=== PATIENT | female | born 2000 | race Caucasian/White ===

== ENCOUNTER 2019-05-01 09:53 | Inpatient (IN) | payer OTHER ==
[2019-05-01] MEDS ORDERED: NORMAL SALINE 1000 ML 1,000 ML IV ONE (11:38)
[2019-05-01] MEDS ORDERED: ONDANSETRON HCL INJ/PF 4 MG/2 ML SDV IV ONE ×2 (11:38→16:23)
--- NOTE | 2019-05-01 11:41 | ER Document Report ---
ED Medical Screen (RME) - General Chief Complaint: Nausea/Vomiting/Diarrhea Stated Complaint: VOMITING Time Seen by Provider: 05/01/19 11:31 Notes: Patient is a 18-year-old female with a history of anxiety, depression, borderline personality disorder who presents emergency department with a chief complaint of vomiting. Patient reports Wednesday night she took 3 handfuls of extra strength Tylenol as well as 1200 mg of ibuprofen. Patient reports she did not do this in an attempt to harm herself but states that she became very emotional and just wanted to "silence her mind." Patient reports she does have a history of suicidal ideation with attempt in the past. Patient reports she was not in pain during this event. Patient reports she is having generalized abdominal pain. Patient reports she has vomited over 20 times and is unable to keep anything down. Patient reports she has not lived here in the area for a long period of time and does not currently take any medications as she does not have a counselor here. Patient currently denies suicidal or homicidal ideation. Patient reports she does have a lot of stressors at home. - Related Data Allergies/Adverse Reactions: Penicillins Allergy (Severe, Verified 05/01/19 11:30) Hives Physical Exam - Vital signs Vitals: Temp Pulse Resp BP Pulse Ox 97.8 F 79 20 121/68 100 05/01/19 10:59 05/01/19 10:59 05/01/19 10:59 05/01/19 10:59 05/01/19 10:59 - Abdominal Inspection: Normal Distension: No distension Bowel sounds: Hyperactive Tenderness: Nontender Organomegaly: No organomegaly Course - Re-evaluation Re-evalutation: 05/01/19 11:40 I have greeted and performed a rapid initial assessment of this patient. A comprehensive ED assessment and evaluation of the patient, analysis of test results and completion of the medical decision making process will be conducted by additional ED providers. - Vital Signs Vital signs: Temp Pulse Resp BP Pulse Ox 97.8 F 79 20 121/68 100 05/01/19 10:59 05/01/19 10:59 05/01/19 10:59 05/01/19 10:59 05/01/19 10:59
[2019-05-01 12:17] LABS: ABSOLUTE EOSINOPHILS # (AUTO) 0.2 10^3/uL (0.0-0.6); ABSOLUTE LYMPHOCYTES (AUTO) 0.7 10^3/uL (0.5-4.7); ABSOLUTE MONOCYTES (AUTO) 0.4 10^3/uL (0.1-1.4); BASOPHILS % (AUTO) 0.3 % (0-2); EOSINOPHILS % (AUTO) 1.9 % (0-6); HEMATOCRIT 44.9 % (36.0-47.0); HEMOGLOBIN 15.4 g/dL (12.0-15.5); LYMPHOCYTES % (AUTO) 8.4 % (13-45); MEAN CORPUSCULAR HEMOGLOBIN 29.5 pg (27.0-33.4); MEAN CORPUSCULAR HGB CONC 34.4 g/dL (32.0-36.0); MEAN CORPUSCULAR VOLUME 86 fl (80-97); MONOCYTES % (AUTO) 4.6 % (3-13); PLATELET COUNT 267 10^3/uL (150-450); RED BLOOD COUNT 5.23 10^6/uL (3.72-5.28); RED CELL DISTRIBUTION WIDTH 13.8 % (11.5-14.0); SEGMENTED NEUTROPHILS % (AUTO) 84.8 % (42-78); TOTAL CELLS COUNTED % (AUTO) 100 %; WHITE BLOOD COUNT 8.2 10^3/uL (4.0-10.5)
[2019-05-01 12:47] LABS: ALBUMIN 5.2 g/dL (3.5-5.0); ALKALINE PHOSPHATASE 67 U/L (38-126); ANION GAP 14 (5-19); ASPARTATE AMINO TRANSFERASE 354 U/L (14-36); BILIRUBIN,DIRECT 0.2 mg/dL (0.0-0.4); BILIRUBIN,TOTAL 3.7 mg/dL (0.2-1.3); BLOOD UREA NITROGEN 9 mg/dL (7-20); CALCIUM 10.4 mg/dL (8.4-10.2); CARBON DIOXIDE 26 mmol/L (22-30); CHLORIDE 99 mmol/L (98-107); GLUCOSE 92 mg/dL (75-110); POTASSIUM 4.2 mmol/L (3.6-5.0); TOTAL PROTEIN 9.1 g/dL (6.3-8.2)
[2019-05-01 12:51] LABS: ACETAMINOPHEN < 10 ug/mL (10-30); ALCOHOL < 10 mg/dL (NONE DETECTED); SALICYLATE < 1.0 mg/dL (2.0-20.0)
[2019-05-01 16:22] LABS: APPEARANCE,URINE CLEAR; BILIRUBIN,URINE NEGATIVE (NEGATIVE); COLOR,URINE YELLOW; GLUCOSE, URINE NEGATIVE (NEGATIVE); KETONES,URINE 80 mg/dL (NEGATIVE); LEUKOCYTE ESTERASE,URINE NEGATIVE (NEGATIVE); NITRITE,URINE NEGATIVE (NEGATIVE); PROTEIN,URINE 30 mg/dL (NEGATIVE); URINE SPECIFIC GRAVITY 1.024; UROBILINOGEN,URINE NEGATIVE mg/dL (<2.0)
[2019-05-01 16:38] LABS: URINE AMPHETAMINES SCREEN NEGATIVE; URINE BARBITURATES SCREEN NEGATIVE; URINE BENZODIAZEPINES SCREEN NEGATIVE; URINE COCAINE SCREEN NEGATIVE; URINE MARIJUANA (THC) SCREEN NEGATIVE; URINE METHADONE SCREEN NEGATIVE; URINE PHENCYCLIDINE SCREEN NEGATIVE
[2019-05-01] MEDS ORDERED: ACETYLCYSTEINE 20% SOLN 6000 MG/30 ML VIAL PO ONE (16:44)
--- NOTE | 2019-05-01 16:56 | ER Document Report ---
ED General - General Chief Complaint: Overdose Stated Complaint: VOMITING Time Seen by Provider: 05/01/19 11:31 Mode of Arrival: Ambulatory Information source: Patient TRAVEL OUTSIDE OF THE [place] IN LAST 30 DAYS: No - HPI Notes: Patient complains of nausea and vomiting. Patient states that approximately 2 days ago on Wednesday night she took 3 handfuls of Tylenol. She states these were extra strength Tylenol. She believes it was approximately 70 total tablets. She states after that she began to have abdominal cramping and vomiting. She states she felt better on Wednesday but then last night and this morning she began to have right-sided abdominal pain with vomiting once again. Therefore she decided to come to emergency room for evaluation. She denies that she was trying to hurt her self. She states that she was very emotional and just trying to calm herself down. She says she has tried to kill her self in the past but was not trying to hurt her self this time. She has seen psychiatry in the past and has a history of borderline personality disorder. Patient denies hearing any voices or seeing visions. Patient denies any problems with stool or urine. The right side abdominal pain is been constant and moderate. It is worse with movement and better with rest. There is no radiation of symptoms. - Related Data Allergies/Adverse Reactions: Penicillins Allergy (Severe, Verified 05/01/19 11:30) Hives Past Medical History - General Information source: Patient - Social History Smoking Status: Current Every Day Smoker - Vapes Chew tobacco use (# tins/day): No Frequency of alcohol use: None Drug Abuse: Other Family History: Reviewed & Not Pertinent Patient has suicidal ideation: No Patient has homicidal ideation: No Pulmonary Medical History: Reports: Hx Asthma Past Surgical History: Reports: Hx Cholecystectomy Review of Systems - Review of Systems Constitutional: Malaise. denies: Chills, Fever Cardiovascular: denies: Chest pain, Palpitations Respiratory: denies: Cough, Short of breath -: Yes All other systems reviewed and negative Physical Exam - Vital signs Vitals: Temp Pulse Resp BP Pulse Ox 97.8 F 79 20 121/68 100 05/01/19 10:59 05/01/19 10:59 05/01/19 10:59 05/01/19 10:59 05/01/19 10:59 Interpretation: Normal - General General appearance: Appears well, Alert - HEENT Head: Normocephalic, Atraumatic Eyes: Normal Pupils: PERRL - Respiratory Respiratory status: No respiratory distress Chest status: Nontender Breath sounds: Normal Chest palpation: Normal - Cardiovascular Rhythm: Regular Heart sounds: Normal auscultation Murmur: No - Abdominal Inspection: Normal Distension: No distension Bowel sounds: Normal Tenderness: Tender - Mild right upper quadrant Organomegaly: No organomegaly - Back Back: Normal, Nontender - Extremities General upper extremity: Normal inspection, Nontender, Normal color, Normal ROM, Normal temperature General lower extremity: Normal inspection, Nontender, Normal color, Normal ROM, Normal temperature, Normal weight bearing. No: Maribel's sign - Neurological Neuro grossly intact: Yes Cognition: Normal Orientation: AAOx4 Carol Coma Scale Eye Opening: Spontaneous Carol Coma Scale Verbal: Oriented Carol Coma Scale Motor: Obeys Commands [place] Coma Scale Total: 15 Speech: Normal Motor strength normal: LUE, RUE, LLE, RLE Sensory: Normal - Psychological Associated symptoms: Normal affect, Normal mood - Skin Skin Temperature: Warm Skin Moisture: Dry Skin Color: Normal Course - Re-evaluation Re-evalutation: 05/01/19 16:54 Patient presents with right side abdominal pain and vomiting. On her laboratories she has elevated liver function test. She does have a history of a recent Tylenol overdose although her Tylenol level is currently not detectable. I did call and consult with poison control. They recommend a loading dose of acetylcysteine. They also recommend admission for serial doses x5. Patient at this time is stable - Vital Signs Vital signs: Temp Pulse Resp BP Pulse Ox 97.8 F 79 20 121/68 100 05/01/19 11:30 05/01/19 10:59 05/01/19 11:30 05/01/19 10:59 05/01/19 11:30 - Laboratory Result Diagrams: 05/01/19 11:55 05/01/19 11:55 Laboratory results interpreted by me: 05/01/19 05/01/19 05/01/19 11:55 11:55 16:04 Lymph % (Auto) 8.4 L Seg Neutrophils % 84.8 H Calcium 10.4 H Total Bilirubin 3.7 H AST 354 H Total Protein 9.1 H Albumin 5.2 H Urine Protein 30 H Urine Ketones 80 H Salicylates < 1.0 L Acetaminophen < 10 L - EKG Interpretation by Me EKG shows normal: Sinus rhythm Rate: Normal - 68 Rhythm: NSR [place]/QRS: No: Right axis deviation, Left axis deviation Discharge - Discharge Clinical Impression: Tylenol overdose Qualifiers: Encounter type: initial encounter Injury intent: undetermined intent Qualified Code(s): T39.1X4A - Poisoning by 4-Aminophenol derivatives, undetermined, initial encounter Condition: Serious Disposition: ADMITTED INPATIENT Admitting Provider: Oren (Hospitalist) - day Unit Admitted: Medical Floor
[2019-05-01] MEDS ORDERED: NORMAL SALINE 1000 ML 1,000 ML IV PRN (17:15)
[2019-05-01] MEDS ORDERED: ONDANSETRON 4 MG TAB.RAPDIS PO PRN (17:15)
[2019-05-01] MEDS ORDERED: ONDANSETRON HCL INJ/PF 4 MG/2 ML SDV IV PRN (17:15)
--- NOTE | 2019-05-01 17:37 | PSYCHOLOGICAL NOTE ---
Psych Note - Psych Note Date seen by psych provider: 05/01/19 Time seen by psych provider: 16:10 Psych Note: Reason for consult: SI Patient is a 18 year old female who presents to ED via POV accompanied by her . Patient took approximately 70 Tylenol pills on Wednesday. Patient complains of gastrointestinal concerns that have not subsided. Patient states she became "overwhelmed" with the increase stress in her life and wanted "to quiet my mind so I could think logically." Patient denies this was a suicide attempt. Patient states she had a history of SI in high school. Patient denies suicidal and homicidal ideations. Patient met her , who is an active duty Marine, 8 months ago and they were 6 months ago. Patient stated this is her first time away from friends and family. Patient expressed some minor concerns adjusting to life. Patient's spouse left for training shortly after they were , and recently returned. Patient's spouse is leaving for deployment in July 2019. 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 Patient recently started school, and reports she will finish the semester with an A. Patient has a history of Borderline Personality Disorder. Patient states she has managed well until recently. Patient has is not linked with medication management or mental health. Patient has expressed a desire for mental health services that dismissed. Clinician provided psychoeducation regarding grief (come and go of deployments). Discussed life and the need to be linked with mental health services to manage emotional distress. Encouraged to reach out to [facility] for couple's counseling. Patient and noted no concerns for safety and wellbeing. Both deny this event was a suicide attempt. Patient is alert and oriented to person, place, time and circumstance. Mood is eurhythmic with congruent affect as evidenced by laughing, smiling, and engaging with clinician. Patient denies suicidal and homicidal ideations. Delusions are absent and behavior is congruent with an intact reality based presentation (i.e.: organized and linear through processes). There is no observed behavior that suggests patient is responding to internal stimuli. Patient denies current auditory and visual hallucinations. Eye contact is appropriate. Conversational speech is within normal rate, tone, and prosody. Intellectual ability appears to be within average range. Attention and concentration are good. Insight, judgment and impulse control are currently fair. DSM Diagnosis: Per report, Borderline Personality Disorder Medication recommendations per [facility] contracted psychiatrist Dr. Mario MICHAELS is as follows: NONE- Patient declined Impression/Plan: Patient is cleared from acute psychiatric services. Patient does not meet IVC criteria per [place] GS 122C. Patient is being admitted for medical concerns. Patient denies suicidal and homicidal ideations. There is no observed behavior that suggests patient is responding to internal stimuli. Patient denies current auditory and visual hallucinations. Patient verbalized awareness of the need for mental health services. Patient is observed to be able to be thoughtfully and purposefully engaged in her plan of care. Patient's is agreeable to being her manager intensive care, and is agreeable to joint therapy sessions to address deployment related concerns. Patient was provided a community mental health resource list with [facility] highlighted. Clinician provided contact information to community counseling center [facility]. Patient and were agreeable to plan and expressed no pressing issues or concerns. Dr. Brewer was consulted on the care and management of this patient; attending physician is in agreement with recommendations and disposition.
--- NOTE | 2019-05-01 17:41 | PDOC H&P ---
History of Present Illness Admission Date/PCP: 05/01/2019 History of Present Illness: RONNA MASSEY is a 18 year old female took approximately 70 Tylenol tablets on Wednesday which was 48 hours ago patient states that she was just overwhelmed and stressed out and wanted to change. She states she was not trying to kill herself as she is done in the past. Patient states that she has been admitted involuntarily to 2 psych units as a teenager 1 lasting 10 days and the other lasting 30. Patient says that she used to cut her wrist and she also used to take lots of pills. States that she just recently got in October and moved down here in January from [place] or [place]. States as a child and as a teenager she was very troubled and took lots of medications. States she has been on multiple antipsychotic and anti-depressive medications in the past. Again patient states that she was not trying to kill herself on Wednesday she was just trying to get rid of the "stress" Allergies penicillin 0 para 0 Patient's is in the room during the interview Past Medical History Pulmonary Medical History: Reports: Asthma Past Surgical History Past Surgical History: Reports: Cholecystectomy Social History Smoking Status: Current Every Day Smoker - Vapes Electronic Cigarette use?: No - Advance Directive Resuscitation Status: Full Code Family History Family History: Reviewed & Not Pertinent Parental Family History Reviewed: No Children Family History Reviewed: No Sibling(s) Family History Reviewed.: No Medication/Allergy Allergies/Adverse Reactions: Penicillins Allergy (Severe, Verified 05/01/19 11:30) Hives Review of Systems Constitutional: ABSENT: chills, fever(s), headache(s), weight gain, weight loss Cardiovascular: ABSENT: chest pain, dyspnea on exertion, edema, orthropnea, palpitations Respiratory: ABSENT: cough, hemoptysis Neurological: ABSENT: abnormal gait, abnormal speech, confusion, dizziness, focal weakness, syncope Psychiatric: PRESENT: anxiety, depression Physical Exam Vital Signs: Temp Pulse Resp BP Pulse Ox 97.8 F 79 20 121/68 100 05/01/19 11:30 05/01/19 10:59 05/01/19 11:30 05/01/19 10:59 05/01/19 11:30 Intake & Output 04/30/19 05/01/19 05/02/19 06:59 06:59 06:59 Intake Total 1000 Balance 1000 Weight 73.9 kg General appearance: PRESENT: no acute distress, well-developed, well-nourished, other - Eating up in bed laughing talking with her and with myself. Does not appear to be in any distress Respiratory exam: PRESENT: clear to auscultation roger. ABSENT: rales, rhonchi, wheezes Cardiovascular exam: PRESENT: RRR. ABSENT: diastolic murmur, rubs, systolic murmur Neurological exam: PRESENT: alert, awake, oriented to person, oriented to place, oriented to time, oriented to situation, CN II-XII grossly intact. ABSENT: motor sensory deficit Psychiatric exam: PRESENT: unusual affect - Happy and bubbly Results Laboratory Results: 05/01/19 11:55 05/01/19 11:55 05/01/19 05/01/19 05/01/19 11:55 11:55 11:55 WBC 8.2 RBC 5.23 Hgb 15.4 Hct 44.9 MCV 86 MCH 29.5 MCHC 34.4 RDW 13.8 Plt Count 267 Seg Neutrophils % 84.8 H Sodium 138.9 Potassium 4.2 Chloride 99 Carbon Dioxide 26 Anion Gap 14 BUN 9 Creatinine 0.64 Est GFR ( Amer) > 60 Glucose 92 Calcium 10.4 H Total Bilirubin 3.7 H AST 354 H Alkaline Phosphatase 67 Total Protein 9.1 H Albumin 5.2 H Serum HCG, Qual NEGATIVE Urine Color Urine Appearance Urine pH Ur Specific [place] Urine Protein Urine Glucose (UA) Urine Ketones Urine Blood Urine Nitrite Ur Leukocyte Esterase Urine WBC (Auto) Urine RBC (Auto) 05/01/19 16:04 WBC RBC Hgb Hct MCV MCH MCHC RDW Plt Count Seg Neutrophils % Sodium Potassium Chloride Carbon Dioxide Anion Gap BUN Creatinine Est GFR ( Amer) Glucose Calcium Total Bilirubin AST Alkaline Phosphatase Total Protein Albumin Serum HCG, Qual Urine Color YELLOW Urine Appearance CLEAR Urine pH 5.0 Ur Specific [place] 1.024 Urine Protein 30 H Urine Glucose (UA) NEGATIVE Urine Ketones 80 H Urine Blood NEGATIVE Urine Nitrite NEGATIVE Ur Leukocyte Esterase NEGATIVE Urine WBC (Auto) 2 Urine RBC (Auto) 0 Assessment and Plan - Diagnosis (1) Depression Is this a current diagnosis for this admission?: Yes (2) Personality disorder Is this a current diagnosis for this admission?: Yes (3) Tylenol overdose Qualifiers: Encounter type: initial encounter Injury intent: undetermined intent Qualified Code(s): T39.1X4A - Poisoning by 4-Aminophenol derivatives, undetermi laverne, initial encounter Is this a current diagnosis for this admission?: Yes - Plan Summary Summary: ER physician has called poison control and is loaded her with Mucomyst 140 mg/kg x 1, then to receive 70 mg/kg x 5 doses every 4 hours. Liver functions will be checked again in the morning. Psychiatry has been consulted Patient will be placed on suicide watch, and though she denies suicidal ideations, as of her past history I think this would be the best thing. She is medically stable to move to the floor - Time Time Spent with patient: 35 or more minutes
[2019-05-01] MEDS: ACETYLCYSTEINE 20% SOLN 6000 MG/30 ML VIAL PO SCH ×3 (18:23→23:44)
--- NOTE | 2019-05-01 18:44 | RADIOLOGY REPORT (SQ) ---
EXAM DESCRIPTION: U/S ABDOMEN LIMITED W/O DOP COMPLETED DATE/TIME: 05/01/2019 6:32 pm REASON FOR STUDY: ruq pain COMPARISON: None. TECHNIQUE: Dynamic and static grayscale images acquired of the abdomen and recorded on PACS. Additio nal selected color Doppler and spectral images recorded. LIMITATIONS: None. FINDINGS: PANCREAS: Not visualized. LIVER: Normal size Echo texture normal. No focal masses. LIVER VASCULATURE: Normal directional flow of the main portal vein and hepatic veins. GALLBLADDER: Surgically absent. ULTRASOUND-DETECTED MERRITT'S SIGN: Negative. INTRAHEPATIC DUCTS AND COMMON DUCT: CBD and intrahepatic ducts normal caliber. No filling defects. INFERIOR VENA CAVA: Normal flow. AORTA: No aneurysm. RIGHT KIDNEY: Normal size. Normal echogenicity. No solid or suspicious masses. No hydronephros is. No calcifications. PERITONEAL AND RIGHT PLEURAL SPACE: No ascites or effusions. OTHER: No other significant findings. IMPRESSION: GALLBLADDER ABSENT. OTHERWISE NORMAL RUQ US VISUALIZED TECHNICAL DOCUMENTATION: JOB ID: [id number] [employer]- All Rights Reserved Reading location - IP/workstation name: [email or web address]
[2019-05-01] MEDS ORDERED: PROMETHAZINE HCL INJ 25 MG/1 ML VIAL IV PRN (19:14)
[2019-05-01] MEDS: FAMOTIDINE 20 MG TABLET PO SCH (22:20)
--- NOTE | 2019-05-02 00:15 | EKG REPORT ---
SEVERITY:- NORMAL ECG - SINUS RHYTHM : Confirmed by: Shipla Medrano 02-May-2019 00:15:23
[2019-05-02] MEDS: ACETYLCYSTEINE 20% SOLN 6000 MG/30 ML VIAL PO SCH ×3 (02:11→12:51)
[2019-05-02 06:04] LABS: ABSOLUTE EOSINOPHILS # (AUTO) 0.2 10^3/uL (0.0-0.6); ABSOLUTE LYMPHOCYTES (AUTO) 1.2 10^3/uL (0.5-4.7); ABSOLUTE MONOCYTES (AUTO) 0.8 10^3/uL (0.1-1.4); ABSOLUTE NEUT (AUTO) 4.9 10^3/uL (1.7-8.2); BASOPHILS % (AUTO) 0.7 % (0-2); EOSINOPHILS % (AUTO) 2.5 % (0-6); HEMATOCRIT 37.8 % (36.0-47.0); MEAN CORPUSCULAR HEMOGLOBIN 29.7 pg (27.0-33.4); MEAN CORPUSCULAR HGB CONC 35.1 g/dL (32.0-36.0); MEAN CORPUSCULAR VOLUME 85 fl (80-97); MONOCYTES % (AUTO) 11.6 % (3-13); PLATELET COUNT 206 10^3/uL (150-450); RED BLOOD COUNT 4.46 10^6/uL (3.72-5.28); RED CELL DISTRIBUTION WIDTH 13.8 % (11.5-14.0); SEGMENTED NEUTROPHILS % (AUTO) 68.2 % (42-78); TOTAL CELLS COUNTED % (AUTO) 100 %; WHITE BLOOD COUNT 7.1 10^3/uL (4.0-10.5)
[2019-05-02 06:54] LABS: HEMOGLOBIN 13.3 g/dL (12.0-15.5)
[2019-05-02 07:18] LABS: ALBUMIN 3.8 g/dL (3.5-5.0); ALKALINE PHOSPHATASE 52 U/L (38-126); ANION GAP 12 (5-19); BILIRUBIN,DIRECT 0.1 mg/dL (0.0-0.4); BILIRUBIN,TOTAL 2.2 mg/dL (0.2-1.3); BLOOD UREA NITROGEN 5 mg/dL (7-20); CALCIUM 8.9 mg/dL (8.4-10.2); CARBON DIOXIDE 26 mmol/L (22-30); CHLORIDE 103 mmol/L (98-107); CREATINE KINASE 20 U/L (30-135); GLUCOSE 89 mg/dL (75-110); PHOSPHORUS 2.9 mg/dL (2.5-4.5); POTASSIUM 3.8 mmol/L (3.6-5.0); TOTAL PROTEIN 6.9 g/dL (6.3-8.2)
[2019-05-02 07:27] LABS: ASPARTATE AMINO TRANSFERASE 789 U/L (14-36)
[2019-05-02] MEDS ORDERED: ACETYLCYSTEINE 20% SOLN 6000 MG/30 ML VIAL PO SCH (10:30)
[2019-05-02] MEDS: FAMOTIDINE 20 MG TABLET PO SCH ×2 (10:58→21:29)
[2019-05-02] MEDS ORDERED: ACETYLCYSTEINE IV ONE ×6 (12:00→16:00)
[2019-05-02] MEDS ORDERED: DEXTROSE 5% IV ONE ×6 (12:00→16:00)
[2019-05-02] MEDS ORDERED: WATER IV ONE ×6 (12:00→16:00)
--- NOTE | 2019-05-02 13:13 | PDOC PROGRESS REPORT ---
Subjective Progress Note for:: 05/02/19 Subjective:: Patient complains of some right upper quadrant pain today. Also endorses some nausea. Otherwise feels well. Patient insists that she was not trying to kill herself but does tend to overreact to emotional distress due to her borderline personality disorder. Reason For Visit: OVERDOSE,PERSONALITY DISORDER, DEPRESSION Physical Exam Vital Signs: Temp Pulse Resp BP Pulse Ox 97.5 F 76 16 127/64 H 100 05/02/19 11:06 05/02/19 11:06 05/02/19 11:06 05/02/19 11:06 05/02/19 11:06 Intake & Output 05/01/19 05/02/19 05/03/19 06:59 06:59 06:59 Intake Total 1000 1000 Balance 1000 1000 Weight 77.7 kg General appearance: PRESENT: no acute distress, cooperative Neck exam: ABSENT: JVD Respiratory exam: PRESENT: clear to auscultation roger, symmetrical, unlabored. ABSENT: tachypnea, wheezes Cardiovascular exam: PRESENT: RRR, +S1, +S2. ABSENT: tachycardia GI/Abdominal exam: PRESENT: normal bowel sounds, soft, tenderness. ABSENT: ascites, distended, firm, guarding, rebound, rigid Neurological exam: PRESENT: alert, awake, oriented to person, oriented to place, oriented to time, oriented to situation Psychiatric exam: PRESENT: normal mood. ABSENT: agitated, anxious, unusual affect Results Laboratory Results: 05/02/19 04:45 05/02/19 04:45 05/01/19 05/01/19 05/01/19 16:04 19:43 19:43 WBC RBC Hgb Hct MCV MCH MCHC RDW Plt Count Seg Neutrophils % Sodium Potassium Chloride Carbon Dioxide Anion Gap BUN Creatinine Est GFR ( Amer) Glucose Lactic Acid Calcium Phosphorus Magnesium Total Bilirubin AST Alkaline Phosphatase Ammonia < 8.7 L Total Protein Albumin TSH 1.72 Urine Color YELLOW Urine Appearance CLEAR Urine pH 5.0 Ur Specific [place] 1.024 Urine Protein 30 H Urine Glucose (UA) NEGATIVE Urine Ketones 80 H Urine Blood NEGATIVE Urine Nitrite NEGATIVE Ur Leukocyte Esterase NEGATIVE Urine WBC (Auto) 2 Urine RBC (Auto) 0 05/02/19 05/02/19 05/02/19 04:45 04:45 06:25 WBC 7.1 RBC 4.46 Hgb 13.3 D Hct 37.8 MCV 85 MCH 29.7 MCHC 35.1 RDW 13.8 Plt Count 206 Seg Neutrophils % 68.2 Sodium 141.2 Potassium 3.8 Chloride 103 Carbon Dioxide 26 Anion Gap 12 BUN 5 L Creatinine 0.55 Est GFR ( Amer) > 60 Glucose 89 Lactic Acid 1.1 Calcium 8.9 Phosphorus 2.9 Magnesium 2.1 Total Bilirubin 2.2 H AST 789 H Alkaline Phosphatase 52 Ammonia Total Protein 6.9 Albumin 3.8 TSH Urine Color Urine Appearance Urine pH Ur Specific [place] Urine Protein Urine Glucose (UA) Urine Ketones Urine Blood Urine Nitrite Ur Leukocyte Esterase Urine WBC (Auto) Urine RBC (Auto) 05/02/19 04:45 Creatine Kinase 20 L Impressions: Abdomen Ultrasound 05/01/19 16:34 IMPRESSION: GALLBLADDER ABSENT. OTHERWISE NORMAL RUQ US VISUALIZED Assessment and Plan - Diagnosis (1) Drug-induced liver injury Is this a current diagnosis for this admission?: Yes Plan: Liver AST and ALT are significantly trending up today Bilirubin is trending down We will continue NAC for now. I have changed dose from p.o. to IV to allow patient tolerated better. We will recheck liver enzymes and liver function with coags this afternoon and d etermine if patient will need further prolonged NAC regimen Poison control has been informed of plan (2) Acetaminophen overdose Qualifiers: Encounter type: initial encounter Injury intent: intentional self-harm Qualified Code(s): T39.1X2A - Poisoning by 4-Aminophenol derivatives, intentional self-harm, initial encounter Is this a current diagnosis for this admission?: Yes Plan: Tylenol level undetectable at initial presentation. It Is uncertain if this was done at the 4-hour maddy. (3) Borderline personality disorder Is this a current diagnosis for this admission?: Yes Plan: Patient has been taking of suicide monitoring by psychiatry. Per psychiatry note, patient does not meet criteria for involuntary confinement and has declined medications. She has been given information to follow-up outpatient with therapist. - Time Time Spent with patient: Less than 15 minutes
--- NOTE | 2019-05-02 14:14 | EKG REPORT ---
SEVERITY:- NORMAL ECG - SINUS RHYTHM : Confirmed by: Shilpa Medrano 02-May-2019 14:13:59
[2019-05-02 16:18] LABS: INTERNATIONAL RATION (INR) 1.31; PARTIAL THROMBOPLASTIN TIME 29.2 SEC (23.5-35.8); PROTHROMBIN TIME 16.4 SEC (11.4-15.4)
[2019-05-02 16:28] LABS: ALBUMIN 3.8 g/dL (3.5-5.0); ALKALINE PHOSPHATASE 45 U/L (38-126); ANION GAP 12 (5-19); ASPARTATE AMINO TRANSFERASE 445 U/L (14-36); BILIRUBIN,TOTAL 1.6 mg/dL (0.2-1.3); BLOOD UREA NITROGEN 4 mg/dL (7-20); CALCIUM 9.3 mg/dL (8.4-10.2); CARBON DIOXIDE 28 mmol/L (22-30); CHLORIDE 102 mmol/L (98-107); GLUCOSE 91 mg/dL (75-110); POTASSIUM 3.6 mmol/L (3.6-5.0)
[2019-05-02 16:31] LABS: ACETAMINOPHEN < 10 ug/mL (10-30)
[2019-05-03 07:15] LABS: INTERNATIONAL RATION (INR) 1.24; PARTIAL THROMBOPLASTIN TIME 29.7 SEC (23.5-35.8); PROTHROMBIN TIME 15.6 SEC (11.4-15.4)
[2019-05-03 07:31] LABS: ALBUMIN 3.5 g/dL (3.5-5.0); ALKALINE PHOSPHATASE 43 U/L (38-126); ANION GAP 8 (5-19); ASPARTATE AMINO TRANSFERASE 143 U/L (14-36); BILIRUBIN,TOTAL 1.1 mg/dL (0.2-1.3); BLOOD UREA NITROGEN 8 mg/dL (7-20); CALCIUM 9.2 mg/dL (8.4-10.2); CARBON DIOXIDE 28 mmol/L (22-30); CHLORIDE 106 mmol/L (98-107); GLUCOSE 92 mg/dL (75-110); POTASSIUM 3.7 mmol/L (3.6-5.0); TOTAL PROTEIN 6.5 g/dL (6.3-8.2)
[2019-05-03] MEDS: FAMOTIDINE 20 MG TABLET PO SCH (09:12)
[2019-05-03 09:44] VITALS: BP 134/81
--- NOTE | 2019-05-03 10:44 | PDOC DISCHARGE SUMMARY ---
Impression - Admit/DC Date/PCP Admission Date/Primary Care Provider: 05/01/19 17:52 Discharge Date: 05/03/19 - Discharge Diagnosis (1) Drug-induced liver injury Is this a current diagnosis for this admission?: Yes (2) Acetaminophen overdose Is this a current diagnosis for this admission?: Yes (3) Borderline personality disorder Is this a current diagnosis for this admission?: Yes - Assessment Summary: Patient was admitted for evaluation and monitoring after reported Tylenol overd ose. Patient had reported taking over 70 tablets. Upon admission, patient was hemodynamically stable. Tylenol level was obtained which was actually negative. It is unclear if this Tylenol level was obtained at the 4-hour maddy from ingestion. CMP revealed mild transaminitis and hyperbilirubinemia indicating some likely drug-induced liver injury. Poison control was contacted in the ER and patient was started on NAC/acetadote protocol. She received her first dose in the ER and subsequently started on subsequent dosing. Patient initially started on oral dosing but later transitioned to IV infusions to allow her to tolerate it better. Repeat CMP the next morning revealed significant worsening of transaminitis as her transaminases more than doubled with some improvement in hyperbilirubinemia. As such the infusion was continued for over 24 hours. Repeat CMP showed later and today that her transaminases have improved significantly and have dropped down trended closer to normal limits. Liver function is intact as evidenced by normal coagulation studies and albumin levels. The NAC infusion was discontinued this morning. Of note, patient was evaluated by psychiatry after initially being placed on IVC and psychiatry stated that patient did not meet the criteria for IVC and that suicide precautions should be discontinued. Her actions were attributed to her borderline personality disorder and patient was offered information to continue with outpatient counseling. Patient declined any psychotropic medications as per psychiatry documentation. Patient is discharged today in stable conditions and given strict instructions to follow-up with her insurance to see a primary care provider within her network to have repeat CMP done within 1 to 2 weeks. - Additional Information Resuscitation Status: Full Code Discharge Diet: As Tolerated Discharge Activity: Activity As Tolerated Referrals: [facility] [Provider Group] - 05/23/19 1:15 pm Home Medications: No Home Medications 05/01/19 History of Present Illiness History of Present Illness: RONNA MASSEY is a 18 year old female took approximately 70 Tylenol tablets on Wednesday which was 48 hours ago patient states that she was just overwhelmed and stressed out and wanted to change. She states she was not trying to kill herself as she is done in the past. Patient states that she has been admitted involuntarily to 2 psych units as a teenager 1 lasting 10 days and the other lasting 30. Patient says that she used to cut her wrist and she also used to take lots of pills. States that she just recently got in October and moved down here in January from [place] or [place]. States as a child and as a teenager she was very troubled and took lots of medications. States she has been on multiple antipsychotic and anti-depressive medications in the past. Again patient states that she was not trying to kill herself on Wednesday she was just trying to get rid of the "stress" Allergies penicillin 0 para 0 Patient's is in the room during the interview Physical Exam Vital Signs: Temp Pulse Resp BP Pulse Ox 98.1 F 70 16 134/81 H 100 05/03/19 09:39 05/03/19 09:39 05/03/19 09:39 05/03/19 09:39 05/03/19 09:39 Intake & Output 05/02/19 05/03/19 05/04/19 06:59 06:59 06:59 Intake Total 1000 2458 Balance 1000 2458 Weight 77.7 kg General appearance: PRESENT: no acute distress, cooperative Neck exam: ABSENT: JVD Respiratory exam: PRESENT: clear to auscultation roger Cardiovascular exam: PRESENT: +S1, +S2 GI/Abdominal exam: PRESENT: normal bowel sounds, soft, tenderness - Mild right upper quadrant tenderness. ABSENT: distended, firm, guarding, rebound, rigid Musculoskeletal exam: PRESENT: ambulatory Neurological exam: PRESENT: alert, awake, oriented to person, oriented to place, oriented to time Skin exam: ABSENT: jaundice Results Laboratory Results: WBC 7.1 10^3/uL (4.0-10.5) 05/02/19 04:45 RBC 4.46 10^6/uL (3.72-5.28) 05/02/19 04:45 Hgb 13.3 g/dL (12.0-15.5) D 05/02/19 04:45 Hct 37.8 % (36.0-47.0) 05/02/19 04:45 MCV 85 fl (80-97) 05/02/19 04:45 MCH 29.7 pg (27.0-33.4) 05/02/19 04:45 MCHC 35.1 g/dL (32.0-36.0) 05/02/19 04:45 RDW 13.8 % (11.5-14.0) 05/02/19 04:45 Plt Count 206 10^3/uL (150-450) 05/02/19 04:45 Lymph % (Auto) 17.0 % (13-45) 05/02/19 04:45 [place] % (Auto) 11.6 % (3-13) 05/02/19 04:45 Eos % (Auto) 2.5 % (0-6) 05/02/19 04:45 Baso % (Auto) 0.7 % (0-2) 05/02/19 04:45 Absolute Neuts (auto) 4.9 10^3/uL (1.7-8.2) 05/02/19 04:45 Absolute Lymphs (auto) 1.2 10^3/uL (0.5-4.7) 05/02/19 04:45 Absolute Monos (auto) 0.8 10^3/uL (0.1-1.4) 05/02/19 04:45 Absolute Eos (auto) 0.2 10^3/uL (0.0-0.6) 05/02/19 04:45 Absolute Basos (auto) 0.0 10^3/uL (0.0-0.2) 05/02/19 04:45 Seg Neutrophils % 68.2 % (42-78) 05/02/19 04:45 PT 15.6 SEC (11.4-15.4) H 05/03/19 06:04 INR 1.24 05/03/19 06:04 APTT 29.7 SEC (23.5-35.8) 05/03/19 06:04 Sodium 142.3 mmol/L (137-145) 05/03/19 06:04 Potassium 3.7 mmol/L (3.6-5.0) 05/03/19 06:04 Chloride 106 mmol/L (98-107) 05/03/19 06:04 Carbon Dioxide 28 mmol/L (22-30) 05/03/19 06:04 Anion Gap 8 (5-19) 05/03/19 06:04 BUN 8 mg/dL (7-20) 05/03/19 06:04 Creatinine 0.52 mg/dL (0.52-1.25) 05/03/19 06:04 Est GFR ( Amer) > 60 (>60) 05/03/19 06:04 Est GFR (MDRD) Non-Af > 60 (>60) 05/03/19 06:04 Glucose 92 mg/dL (75-110) 05/03/19 06:04 Lactic Acid 1.1 mmol/L (0.7-2.1) 05/02/19 06:25 Calcium 9.2 mg/dL (8.4-10.2) 05/03/19 06:04 Phosphorus 2.9 mg/dL (2.5-4.5) 05/02/19 04:45 Magnesium 2.1 mg/dL (1.6-2.3) 05/02/19 04:45 Total Bilirubin 1.1 mg/dL (0.2-1.3) 05/03/19 06:04 Direct Bilirubin 0.0 mg/dL (0.0-0.4) 05/03/19 06:04 Neonat Total Bilirubin Not Reportable 05/03/19 06:04 Neonat Direct Bilirubin Not Reportable 05/03/19 06:04 Neonat Indirect Bili Not Reportable 05/03/19 06:04 AST 143 U/L (14-36) H 05/03/19 06:04 ALT 484 U/L (<35) 05/03/19 06:04 Alkaline Phosphatase 43 U/L (38-126) 05/03/19 06:04 Ammonia < 8.7 umol/L (9-33) L 05/01/19 19:43 Creatine Kinase 20 U/L (30-135) L 05/02/19 04:45 Total Protein 6.5 g/dL (6.3-8.2) 05/03/19 06:04 Albumin 3.5 g/dL (3.5-5.0) 05/03/19 06:04 TSH 1.72 uIU/mL (0.47-4.68) 05/01/19 19:43 Serum HCG, Qual NEGATIVE (NEGATIVE) 05/01/19 11:55 Urine Color YELLOW 05/01/19 16:04 Urine Appearance CLEAR 05/01/19 16:04 Urine pH 5.0 (5.0-9.0) 05/01/19 16:04 Ur Specific [place] 1.024 05/01/19 16:04 Urine Protein 30 mg/dL (NEGATIVE) H 05/01/19 16:04 Urine Glucose (UA) NEGATIVE mg/dL (NEGATIVE) 05/01/19 16:04 Urine Ketones 80 mg/dL (NEGATIVE) H 05/01/19 16:04 Urine Blood NEGATIVE (NEGATIVE) 05/01/19 16:04 Urine Nitrite NEGATIVE (NEGATIVE) 05/01/19 16:04 Urine Bilirubin NEGATIVE (NEGATIVE) 05/01/19 16:04 Urine Urobilinogen NEGATIVE mg/dL (<2.0) 05/01/19 16:04 Ur Leukocyte Esterase NEGATIVE (NEGATIVE) 05/01/19 16:04 Urine WBC (Auto) 2 /HPF 05/01/19 16:04 Urine RBC (Auto) 0 /HPF 05/01/19 16:04 Squamous Epi Cells Auto 1 /HPF 05/01/19 16:04 Urine Mucus (Auto) FEW /LPF 05/01/19 16:04 Urine Ascorbic Acid NEGATIVE (NEGATIVE) 05/01/19 16:04 Urine HCG, Qual NEGATIVE (NEGATIVE) 05/01/19 16:04 Salicylates < 1.0 mg/dL (2.0-20.0) L 05/01/19 11:55 Urine Opiates Screen NEGATIVE 05/01/19 16:04 Urine Methadone Screen NEGATIVE 05/01/19 16:04 Acetaminophen < 10 ug/mL (10-30) L 05/02/19 14:57 Ur Barbiturates Screen NEGATIVE 05/01/19 16:04 Ur Phencyclidine Scrn NEGATIVE 05/01/19 16:04 Ur Amphetamines Screen NEGATIVE 05/01/19 16:04 U Benzodiazepines Scrn NEGATIVE 05/01/19 16:04 Urine Cocaine Screen NEGATIVE 05/01/19 16:04 U Marijuana (THC) Screen NEGATIVE 05/01/19 16:04 Serum Alcohol < 10 mg/dL (NONE DETECTED) 05/01/19 11:55 Impressions: Abdomen Ultrasound 05/01/19 16:34 IMPRESSION: GALLBLADDER ABSENT. OTHERWISE NORMAL RUQ US VISUALIZED Plan Time Spent: Less than 30 Minutes Stroke Is this a Stroke Patient?: No Acute Heart Failure - Is this a Heart Failure Patient?: No
== END 2019-05-03 10:02 | disposition home or self-care (01) | DRG 918 ==
LOC: ER 09:53 → EH 17:52 → 4N 18:40
PROVIDERS: ADMIT Internal Medicine; ATTEND Internal Medicine
DX: T39.1X4A Poisoning by 4-Aminophenol derivatives, undetermined, initial encounter (principal); K71.9 Toxic liver disease, unspecified; F60.3 Borderline personality disorder; R74.0 Nonspecific elevation of levels of transaminase and lactic acid dehydrogenase [LDH]; E80.6 Other disorders of bilirubin metabolism; J45.909 Unspecified asthma, uncomplicated; F17.290 Nicotine dependence, other tobacco product, uncomplicated; F41.9 Anxiety disorder, unspecified; F32.9 Major depressive disorder, single episode, unspecified; Y92.9 Unspecified place or not applicable; Z88.0 Allergy status to penicillin
CPT/HCPCS: 36415; 76705; 80053; 80307; 81001; 81025; 82140; 82550; 83605; 83735; 84100; 84443; 84703; 85025; 85610; 85730; 87070; 93005; 93010; 96361; 96374; 99284; J0132; J2405; J2550; J7030; J7060; J7604